=== PATIENT | female | born 1960 | race Caucasian/White ===

== ENCOUNTER 2016-05-12 12:06 | Emergency (ER) | payer MEDICARE ==
--- NOTE | ~2016-05-12 | CT71 ---
[facility] A Service of [facility] / [facility] RADIOLOGY TEXT RESULTS PATIENT: MICHELL CUENCA LOCATION: SED : 58 UNIT #: [id number] AGE: [address]: Constantino Jade MD SEX: F ORDER DR: [id number] [place] [id number] MR#: [id number] Acc #: [id number] NAME: MICHELL CUENCA : 1960 SEX: F STUDY DATE/TIME: 05/12/2016 12:08 UNIT: SED ROOM: STUDY DESCRIPTION: CT Head Wo Contrast Attending Physician: Constantino Jade M.D. Referring Physician: Constantino Jade M.D. Ordering Physician: Constantino Jade M.D. Primary Care Physician: Dion Martinez M.D. MEDICAL IMAGING REPORT This report is preliminary unless electronic signature is present. EXAM CT brain without contrast, date of examination 05/12/2016. COMPARISON None. HISTORY Lightheaded, dizziness since yesterday, nausea, vomiting. TECHNIQUE Transaxial imaging of the brain was performed without contrast media. This CT exam was performed with one or more of the following radiation dose reduction techniques: automatic exposure control, adjustment of mA and/or kV according to patient size, and iterative reconstruction. FINDINGS Ventricular size and configuration is normal. No intra or extraaxial mass lesions, fluid collections or mass effect are seen. No focal areas of low attenuation or evidence of acute intracranial hemorrhage. CONCLUSION 1. Normal noncontrast CT of the brain. Dictated by... Sy Nicolas M.D. THIS IS AN ELECTRONICALLY VERIFIED REPORT Sy Nicolas M.D. at 05/13/2016 4:26 PM JFK/amy TD: 05/12/2016 14:18 [facility] A Service of [facility] / [facility] RADIOLOGY TEXT RESULTS PATIENT: MICHELL CUENCA LOCATION: SED : 58 UNIT #: [id number] AGE: [address]: Constantino Jade MD SEX: F ORDER DR: JOB #: [id number] MEDICAL IMAGING REPORT Page 1 of 1
--- NOTE | ~2016-05-12 | EKG ---
PATIENT: MICHELL CUENCA UNIT #: [id number] Ventricular Rate: 72 BPM Atrial Rate: 72 BPM P-R Interval: 138 ms QRS Duration: 72 ms Q-T Interval: 386 ms QTC Calculation(Bezet): 422 ms P [place]: 12 degrees Calculated R [place]: 70 degrees Calculated T [place]: 60 degrees Diagnosis Line: Normal sinus rhythm Diagnosis Line: Normal ECG Diagnosis Line: Diagnosis Line: Confirmed by SHELTON TRINIDAD MD ([id number]) on 05/18/2016 Diagnosis Line: 7:59:08 PM INTERPRETING MD: VIVI PACE
[2016-05-12 11:59] LABS: BASOPHIL# 0.1 X10e3 (0-0.3); BASOPHIL% 1.2 % (0-2.5); EOSINOPHIL# 0.2 X10e3 (0-0.7); EOSINOPHIL% 1.8 % (0.0-7.0); LYMPHOCYTE# 2.3 X10e3 (1.0-3.5); LYMPHOCYTE% 26.7 % (17.0-45.0); MEAN CELL VOLUME 96.7 FL (83-96); MEAN CORPUSCULAR HEMOGLOBIN 32.1 PG (28-34); MEAN CORPUSCULAR HGB CONC 33.2 g/dL (30-36); MEAN PLATELET VOLUME 9.1 FL (6.5-11.5); MONOCYTE# 0.5 X10e3 (0-1.0); MONOCYTE% 5.9 % (3.0-12.0); NEUTROPHIL# 5.5 X10e3 (1.5-7.1); NEUTROPHIL% 64.4 % (40-75); PLATELET COUNT 275 X10e3 (140-420); RED BLOOD COUNT 4.66 X10e (3.90-5.30); RED CELL DISTRIBUTION WIDTH 14.1 % (11.0-15.5); WHITE BLOOD COUNT 8.5 X10e3 (4.0-10.5)
[2016-05-12 12:03] LABS: DIFF IND NO
[~2016-05-12 12:06] MED LIST: ALBUTEROL17 GM; ALBUTEROL17 GM INH; ATROVENT HFA12.9 G1 INH; CENTRUM SILVER PO; CIPRO PO; COMBIVENT INH14.7 GM INH; DELSYM30 MG/5 M1 PO; FLEXERIL PO; FLEXERIL10 MG PO; FOLIC ACID PO; FOLIC ACID-B12/1 TAB PO; FOSAMAX; FOSAMAX PO; HYDROCODON-ACE1 EACH PO; IBUPROFEN; IBUPROFEN800 MG PO; IMODIUM2 MG PO; LEVAQUIN PO; LORTAB 5/500 TA1 TA1 PO; MEDROL PO; METHOTREXATE INJ; METHOTREXATE PO; METHOTREXATE2.5 MG; METHOTREXATE2.5 MG PO; MULTIVITAMIN1 UDCAP PO; PHENERGAN PO; PHENERGAN SUPP25 MG PR; PHENERGAN25 MG PO; PLAQUENIL200 MG PO; PREDNISONE; PREDNISONE PO; PRILOSEC PO; PROMETHAZINE-D240 ML PO; ROBITUSSIN A-C-S1 ML PO; ROBITUSSIN ALL118 ML PO; VICODIN 5/500 T1 TAB PO; VOLTAREN50 MG PO; ZITHROMAX PO; ZYRTEC10 M2 PO
[2016-05-12 12:10] LABS: ALBUMIN SERUM 3.8 g/dL (3.5-5.0); BILIRUBIN, DIRECT 0.1 mg/dL (0.0-0.2); BILIRUBIN,INDIRECT 0.2 mg/dL (0.0-0.9); BILIRUBIN,TOTAL 0.3 mg/dL (0.2-2.0); BUN/CREATININE RATIO 13.33; CREATININE SERUM 0.9 mg/dL (0.6-1.4); GLOM FILT RATE Estimated 71.5 mL/min (>60); PROTEIN TOTAL SERUM 6.9 g/dL (6.0-8.3)
[2016-05-12 12:59] LABS: URINE SOURCE CLEAN CATCH
[2016-05-12 13:04] LABS: MICRO INDICATED? YES; URINE APPEARANCE CLEAR; URINE BILIRUBIN NEG (NEG); URINE BLOOD 2+ (NEG); URINE COLOR YELLOW; URINE GLUCOSE NEG (NORM); URINE KETONE NEG (NEG); URINE LEUKOCYTE ESTERASE NEG (NEG); URINE NITRATE NEG (NEG); URINE PH 5.5 (5-8); URINE PROTEIN NEG (NEG); URINE SPECIFIC GRAVITY <=1.005 (1.003-1.035); URINE UROBILINOGEN 0.2 MG/DL (NORM)
[2016-05-12 13:16] LABS: CULTURE INDICATED? NO; URINE BACTERIA NEG (NEG); URINE RBC 0-2 /[HPF] (0-2); URINE SQUAMOUS EPITHELIAL CELL OCCAS /[HPF]; URINE WBC 0-2 /[HPF] (0-5)
== END 2016-05-12 13:40 | disposition home or self-care (01) ==
LOC: SED 12:06
PROVIDERS: Emergency Medicine
DX: H81.10 Benign paroxysmal vertigo, unspecified ear (principal); J44.9 Chronic obstructive pulmonary disease, unspecified; J45.909 Unspecified asthma, uncomplicated; F17.210 Nicotine dependence, cigarettes, uncomplicated
CPT/HCPCS: 70450; 80048; 80076; 81003; 82947; 85025; 93005; 96361; 96374; 99284; J2405